=== PATIENT | female | born 1985 | race African-American/Black ===

== ENCOUNTER 2019-01-16 14:57 | Inpatient (IN) | payer OTHER ==
[~2019-01-16] VITALS: Ht 149.9 cm; Wt 85.0 kg
[2019-01-16 15:15] VITALS: BP 123/80; PULSE 116; RESP 16; Ht 149.9 cm; Wt 85.0 kg
[2019-01-16] MEDS ORDERED: IPRA4AER INHALATION (15:25)
[2019-01-16] MEDS ORDERED: FERR134T PO (15:26)
[2019-01-16] MEDS ORDERED: OXYTOCIN 30 UNITS/LR 500 ML IV PRN ×2 (15:30→19:30)
[2019-01-16] MEDS ORDERED: MISOPROSTOL 200 MCG TAB PR PRN ×2 (15:30→19:30)
[2019-01-16] MEDS ORDERED: OXYTOCIN 30 UNITS/LR 500 ML IV SCH ×2 (15:30→19:06)
[2019-01-16] MEDS ORDERED: CEFAZOLIN 2 GM/50 ML (PMX) 50 ML IVPB SCH (15:30)
[2019-01-16] MEDS ORDERED: CARBOPROST 250 MCG INJ IM PRN ×2 (15:30→19:30)
[2019-01-16] MEDS ORDERED: METHYLERGONOVINE 0.2 MG INJ IM PRN ×2 (15:30→19:30)
--- NOTE | 2019-01-16 16:16 | PREAC ---
Date/Time of Note Date/Time of Note DATE: 01/16/19 TIME: 16:14 Anesthesia Eval and Record Evaluation Time Pre-Procedure Interview DATE: 01/16/19 TIME: 16:14 Age 34 Sex female NPO: 8 hrs Preoperative diagnosis repeat c setion Planned procedure c section Past Medical History Past Medical History: Includes Pulm: Asthma : Gestational age: (39.4) Surgery & Anesthesia Issues No known issue Meds Anticoagulation: No Beta Deb within 24 hr: No Reason Beta Deb not given: Pt. not on B-Deb Reported Medications Ferrous Sulfate (Iron) 134 Mg Tablet, 134 MG PO Q8, TAB 01/16/19 Albuterol/Ipratropium* (Combivent Respimat*) 20-100 Mcg/Inh - 4 Gm Aer.w.adap, 1 PUFF INHALATION QID, #1 INHALER 01/16/19 Current Medications Lactated Ringer's 1,000 ml @ 125 mls/hr Q8H IV ; Start 01/16/19 at 15:16 Cefazolin Sodium/ Dextrose 50 ml @ 100 mls/hr ONCE IVPB ; Start 01/16/19 at 15:30 Oxytocin/Lactated Ringer's 500 ml @ 125 mls/hr POST IV ; Start 01/16/19 at 15:30 Oxytocin/Lactated Ringer's 500 ml @ 0 mls/hr ONCE PRN IV .VAGINAL BLEEDING; Start 01/16/19 at 15:30 Methylergonovine Maleate (Methergine) 0.2 mg ONCE PRN IM .VAGINAL BLEEDING; Start 01/16/19 at 15:30 Carboprost Tromethamine (Hemabate) 250 mcg ONCE PRN IM .VAGINAL BLEEDING; Start 01/16/19 at 15:30 Misoprostol (Cytotec) 1,000 mcg ONCE PRN [place] .VAGINAL BLEEDING; Start 01/16/19 at 15:30 Meds reviewed: Yes Allergies Coded Allergies: No Known Allergy (Unverified , 01/16/19) Allergies Reviewed: Yes Labs/Studies Labs Reviewed: Reviewed by anesthesiologist Result Diagram: 01/16/19 1540 Laboratory Tests 01/16/19 15:40 test: Positive Studies: ECG (n/a), CXR (n/a) Pre-procedure Exam Airway: Adequate mouth opening Mallampati: Mallampati I Teeth: Normal Lung: Normal Heart: Normal ASA Physical Status ASA physical status: 2 Emergency: None Planned Anesthetic Neuraxial: Spinal Planned Pain Management Sub-arachniod narcotics Pre-operative Attestations Prior to commencing anesthesia and surgery, the patient was re-evaluated, there was verification of: *The patient's identity *The results of appropriate recent lab work and preoperative vital signs *The above evaluation not changing prior to induction *Anesthetic plan, risk benefits, alternative and complications discussed with patient/family; questions answered; patient/family understands, accepts and wishes to proceed. BRENNON BINGHAM MD January 16, 2019 16:16
[2019-01-16] MEDS ORDERED: ALBUTEROL/IPRATROPIUM (NEB) 3 ML AMP HHN SCH (17:00)
[2019-01-16] MEDS ORDERED: morphine SULFATE/PF (10 MG/10 ML) INJ ONE (17:43)
[2019-01-16] MEDS ORDERED: KETOROLAC 30 MG INJ ONE (17:43)
[2019-01-16] MEDS ORDERED: METOCLOPRAMIDE 10 MG INJ ONE (17:43)
[2019-01-16] MEDS ORDERED: ONDANSETRON 4 MG INJ ONE (17:43)
--- NOTE | 2019-01-16 17:54 | PREOPHP ---
DATE OF ADMISSION: 01/16/2019 HISTORY OF PRESENT ILLNESS: This is a 34-year-old lady, 8, para 3 with 2 spontaneous abortio ns and 2 therapeutic abortions. Her EDC is 01/20/2019 at 39 and 3/7 weeks, admitted to [facility] for repeat plus bilateral tubal ligation. The procedures were explained to her and she understood everything totally. The risks, benefits and alternatives were discussed with her as well. She had 1 previous and desires to have a repeat . PAST PERSONAL HISTORY: No history of diabetes, TB, asthma. ALLERGIES: NO ALLERGIES. SOCIAL HISTORY: The patient does not smoke. She does not drink. MEDICATIONS: She does not take any drugs except her: 1. Iron. 2. Vitamins. GYNECOLOGICAL HISTORY: She had menarche at the age of 8, every 28 days interval, 3 to 4 days duratio n and moderate in amount. FAMILY HISTORY: Grandmother on mother's side had diabetes, hypertension and heart disease. OBSTETRICAL HISTORY: She is 8, para 3. Her first delivery was in 2000, second in 2007, thir d in 2011. The first 2 were normal delivery. The last 1 was by . REVIEW OF SYSTEMS: CARDIOVASCULAR: No chest pains. RESPIRATORY: No cough. GASTROINTESTINAL: No diarrhea. No vomiting. GENITOURINARY: No dysuria. PHYSICAL EXAMINATION: GENERAL: Reveals a conscious, coherent lady and in no acute distress. VITAL SIGNS: Blood pressure 120/80, pulse rate 80 per minute, respirations 16 per minute. BREASTS, HEART AND LUNGS: Within normal limits. ABDOMEN: Soft. No organomegaly. Fundic height 38 cm. heart tones 140 per minute. PELVIC: Revealed the cervix to be 2 to 3 cm dilated, thick, station floating in cephalic presentatio n with the bag of water intact. EXTREMITIES: No pedal edema. ADMITTING DIAGNOSES: 1. A 39 and 3/7 weeks intrauterine . 2. One previous section. 3. Multiparity. 4. The patient desires sterilization. 5. Advanced maternal age. PLAN: The patient was planned to have the above procedure, repeat plus tubal ligation. Th e procedures were explained to the patient as mentioned. She understood everything totally. The ris ks, benefits and alternatives were discussed with her as well. Dictated By: CARA ROSE/JAMIL Conf#: [id number] DID#: [id number]
[2019-01-16] MEDS ORDERED: PHENYLephrine (100 MCG/ML) 10ML SYG ONE (18:13)
[2019-01-16] MEDS ORDERED: LACTATED RINGER'S 1,000 ML IV SCH (19:06)
--- NOTE | 2019-01-16 19:06 | OPPN ---
Date/Time of Note Date/Time of Note DATE: 01/16/19 TIME: 19:03 Operative Report Planned Procedure Procedure date January 16, 2019 Procedure(s) REPEAT CSECTION BTL SUBMUCOS MYOMECTOMY Performed by see signature line Corner Trimmer Operator: JARON BECKHAM MD 2nd Corner Trimmer Operator none Pre-procedure diagnosis 39 WEEKS 3/7 IUP PREVIOUS CSECTION MULTIPARITY [id number] Anesthesia Type: [id number] spinal Post-Procedure Post-procedure diagnosis 39 WEEKS 3/7 IUP PREVIOUS CSECTION MULTIPARITY FIBROID Findings Live Baby BOY, Apgars 9and 9, [id number] Estimated Blood Loss: 500 - 600 mls Specimen(s) none Grafts/Implant(s) PLACENTA BOTH TUBES FIBROID Complication(s) none CARA LANIER MD January 16, 2019 19:06
[2019-01-16] MEDS: LACTATED RINGER'S 1,000 ML IV SCH ×2 (19:23→23:16)
[2019-01-16] MEDS ORDERED: ONDANSETRON 4 MG INJ IV PRN ×2 (19:30)
[2019-01-16] MEDS ORDERED: KETOROLAC 30 MG INJ IV PRN ×2 (19:30)
[2019-01-16] MEDS ORDERED: NALOXONE (0.4 MG/ML) INJ IV PRN (19:30)
[2019-01-16] MEDS ORDERED: METHYLERGONOVINE 0.2 MG TAB PO PRN (19:30)
[2019-01-16] MEDS ORDERED: HYDROCODONE/APAP (5/325) TAB PO PRN (19:30)
[2019-01-16] MEDS ORDERED: LANOLIN HPA 1 PKT TOP PRN (19:30)
[2019-01-16] MEDS ORDERED: DIPHENHYDRAMINE 50 MG INJ IV PRN ×2 (19:30)
[2019-01-16] MEDS ORDERED: morphine 2 MG INJ IV PRN ×6 (19:30)
[2019-01-16 21:50] VITALS: BP 118/64; PULSE 93; RESP 18
[2019-01-16] MEDS: SENNA/DOCUSATE NA (8.6MG/50MG) TAB PO SCH (22:02)
[2019-01-17 02:00] VITALS: BP 108/55; RESP 18
[2019-01-17] MEDS: LACTATED RINGER'S 1,000 ML IV SCH ×2 (04:32→12:18)
[2019-01-17 07:30] VITALS: BP 94/54; PULSE 102; RESP 18
--- NOTE | 2019-01-17 07:57 | PAC ---
Date/Time of Note Date/Time of Note DATE: 01/17/19 TIME: 07:57 Post-Anesthesia Notes Post-Anesthesia Note Last documented vital signs Vital Signs Date Temp Pulse Resp B/P (MAP) Pulse Ox O2 O2 Flow FiO2 Time Delivery Rate 01/17/19 98.2 91 18 108/55 98 Room Air 02:00 (72) 01/16/19 93 21:50 Activity: WNL Respiratory function: WNL Cardiovascular function: WNL Mental status: Baseline Pain reasonably controlled: Yes Hydration appropriate: Yes Nausea/Vomiting absent: No BRENNON BINGHAM MD January 17, 2019 07:57
--- NOTE | 2019-01-17 07:58 | OPPN ---
Date/Time of Note Date/Time of Note DATE: 01/17/19 TIME: 07:58 Anesthesia Follow up Anesthesia Follow up Last documented vital signs Vital Signs Date Temp Pulse Resp B/P (MAP) Pulse Ox O2 O2 Flow FiO2 Time Delivery Rate 01/17/19 98.2 18 108/55 98 Room Air 02:00 (72) 01/16/19 93 21:50 Respiratory function: WNL Cardiovascular function: WNL Comments A 34 year female s/p spinal with duramorph form post op pain POD#1 is fine. No pain, headache, N/V, itching. no neural deficit. care per surgery BRENNON BINGHAM MD January 17, 2019 07:58
[2019-01-17] MEDS: SENNA/DOCUSATE NA (8.6MG/50MG) TAB PO SCH ×2 (08:33→21:41)
[2019-01-17] MEDS: FERROUS SULFATE (EC) 325 MG TAB PO SCH ×2 (12:18→21:41)
--- NOTE | 2019-01-17 15:09 | OPR ---
DATE OF OPERATION: 01/16/2019 PREOPERATIVE DIAGNOSES: 39 and 3/7 weeks intrauterine with previous x1, multipar ity, discharged to sterilization. POSTOPERATIVE DIAGNOSES: 39 and 3/7 weeks intrauterine with previous x1, multipa rity, discharged to sterilization, submucous fibroid on the lower uterine segment. SURGEON: Cara Mclaughlin M.D. [employer] SE[employer] PLANT ENGINEER: Dr. Handley ANESTHESIA: Under spinal anesthesia. OPERATION PERFORMED: Repeat low transverse section plus bilateral tubal ligation and transe ction and myomectomy. OPERATIVE TECHNIQUE: Under spinal anesthesia, the patient was prepped and draped in the usual fashio n for abdominal surgery. After checking for the effect of the anesthesia, Pfannenstiel incision, 12 cm skin incision was performed. The previous scar was excised. The incision was carried from the sk in up to the fascia. Upon opening the skin up to the fascia, small blood vessels were noted to be oo zing and these were all cauterized. Fascia was opened transversely followed by splitting the muscles vertically and the peritoneum vertically. Upon opening the abdominal cavity, the bladder blade was put in place. A small rahat was performed from the serosa up to the endometrium on the lower uterine segment and the rahat was carried sideways with the aid of my 2 fingers. My left hand was inserted on the lower segment of the uterus and the bag of water was ruptured. Clear fluid was noted. Baby's h ead was delivered with good fundal pressure. The baby's airways were quickly suctioned with amniotic fluid. The anterior shoulder, posterior shoulder, and rest of the body of the baby was delivered. Baby's airways were quickly suctioned with amniotic fluid, cord was clamped after 30 seconds and baby was handed to the NICU team. The placenta was delivered manually and complete. The uterus was exte riorized. The uterus was cleansed with wet lap sponge to make sure that no membranes were left behind. The lower uterine segment on the right angle of the incision, there is a huge fibroid 7 x 7 cm and pedunculated and the lower uterine segment cannot be closed without removing this fibroid, so that 2 Jaime suture were placed at the base of the fibroid and the fibroid was excised. Jaime sut ure was put in and the 2 Jaime suture was put in but followed by free tie on both. Bleeders were ch ecked, and there was no bleeding noted. Then, after correct sponge count, the uterus was closed in t he usual fashion using #1 chromic for the first layer, continuous locking suture was used followed by #1 chromic for the second layer, imbricating sutures were used. Bleeders were checked, and there wa s no bleeding noted. After checking for any bleeders in which there were none, both tubes and ovarie s were inspected. They were healthy looking. The back of the uterus was checked for any hematoma an d there was none noted. Then the right tube was grasped on the center where the avascular area was. A 1 cm tube was stick tied at the proximal and distal portions with 2-0 silk. A stick tie with 2-0 chromic above the first silk tie and another free tie with 2-0 chromic above the second tie. The rig ht tube was cut and the cut ends were cauterized. Same thing was done on the left side. Both fimbri a were identified, 1 cm tube was transected on both sides. Then, after checking for any bleeders in which there were none, then the broad ligament as mentioned were checked for any hematoma and there w as none noted. The uterus was put back to the pelvic cavity. Once again, uterine incision was check ed for any bleeders and there was no bleeding noted. After correct sponge count, needle count and in strument count as confirmed by the supervisor sound technician and electorate officer, the abdomen was closed in the usual fas hion using 0 Vicryl for the peritoneum, 0 Vicryl for the muscles, for the fascia 0 Vicryl continuous stitch was used followed by few [id number] suture for the subcutaneous tissue, it was closed wit h 3-0 Vicryl and the skin was closed with 3-0 Vicryl, subcuticular suture was used. The patient toldiego rated the procedure well. Estimated blood loss was about 600 mL. Vital signs were stable during and after the procedure. She delivered a healthy baby boy, Apgars 9 and 9 on 01/16/2019 at 8:19 p.m. wi th weight 6 pounds 7 ounces, 2930 grams. Dictated By: CARA ROSE/JAMIL Conf#: [id number] DID#: [id number] CC: CARA MCLAUGHLIN MD;*[facility]*
[2019-01-17 16:00] VITALS: BP 117/73; PULSE 102; RESP 18
[2019-01-17] MEDS: HYDROCODONE/APAP (5/325) TAB PO PRN ×2 (17:46→23:44)
[2019-01-17] MEDS: SOD CHLORIDE 0.9% 1,000 ML IV SCH (18:50)
[2019-01-17 20:05] VITALS: BP 108/71; PULSE 100; RESP 18
[2019-01-17] MEDS: IBUPROFEN 800 MG TAB PO PRN (22:28)
[2019-01-17 22:35] VITALS: BP 120/72; PULSE 90; RESP 18
[2019-01-17 23:35] VITALS: BP 120/72; PULSE 100; RESP 18
[2019-01-18 02:00] VITALS: BP 109/58; PULSE 99; RESP 18
[2019-01-18] MEDS: SOD CHLORIDE 0.9% 1,000 ML IV SCH ×3 (03:00→19:00)
[2019-01-18 04:00] VITALS: BP 110/72; PULSE 92; RESP 18
[2019-01-18] MEDS: HYDROCODONE/APAP (5/325) TAB PO PRN ×2 (04:43→17:27)
[2019-01-18] MEDS: IBUPROFEN 800 MG TAB PO PRN ×2 (07:26→15:44)
[2019-01-18 07:30] VITALS: BP 114/57; PULSE 88; RESP 18
[2019-01-18] MEDS: SENNA/DOCUSATE NA (8.6MG/50MG) TAB PO SCH ×2 (08:52→21:00)
[2019-01-18] MEDS: FERROUS SULFATE (EC) 325 MG TAB PO SCH ×3 (08:52→21:00)
[2019-01-18 16:17] VITALS: BP 121/64; PULSE 95; RESP 18
--- NOTE | 2019-01-18 16:26 | PN ---
Date/Time of Note Date/Time of Note DATE: 01/17/19 TIME: 16:24 Assessment/Plan VTE Prophylaxis Risk score (from Ns)>0 risk: 3 SCD applied (from Ns): No SCD contraindicated: low risk/ambulating Pharmacological prophylaxis: NA/contraindicated Pharm contraindication: low risk/ambulating Lines/Catheters IV C[facility]from [facility] Saline Lock Assessment/Plan Assessment/Plan POSTCSECTION DAY 1 CHRONIC IRON DEFICIENCY ANEMIA TRANFUSE 2 UNITS PACK CELL ORDERED ADVANCE DIET TOLERATED CBC ON 3RD POSTOP DAY Result Diagram: 01/17/19 0659 01/17/19 0659 Subjective 24 Hr Interval Summary Free Text/Dictation POST CSECTION DAY 1 COMPLAIN OF INCISIONAL PAINS GOOD URINE OUTPUT PASSING GAS PER RECTUM NO BOWEL MOVEMENT YET Exam/Review of Systems Exam Vitals Vital Signs Date Temp Pulse Resp B/P (MAP) Pulse Ox O2 O2 Flow FiO2 Time Delivery Rate 01/18/19 98.4 95 18 121/64 Room Air 16:17 (83) 01/17/19 98 02:00 Intake and Output 01/17/19 01/17/19 01/18/19 1515:00 23:00 07:00 IntakeIntake Total 1700 ml 650 ml OutputOutput Total 800 ml 1500 ml BalanceBalance 900 ml -850 ml Exam VITAL SIGNS STABLE: YES AFEBRILE: YES BREAST NOT ENGORGED, NON-TENDER, NO APPRECIABLE MASS: YES LUNGS CLEAR, NO RALES, WHEEZES, RHONCHI: YES SINUS RHYTHM WITHOUT MURMUR: YES ABDOMEN: NON-TENDER FUNDUS: BELOW UMBILICUS BOWEL SOUNDS: PRESENT UTERUS: FIRM INCISION (CLEAN, DRY, AND INTACT): YES LOCHIA: LIGHT DEEP TENDON REFLEXES: 0 EXTREMITIES: NO CALF TENDERNESS EDEMA SCALE: NONE Medications Medication Current Medications Methylergonovine Maleate (Methergine) 0.2 mg ONCE PRN IM .VAGINAL BLEEDING; Start 01/16/19 at 15:30 Misoprostol (Cytotec) 1,000 mcg ONCE PRN [place] .VAGINAL BLEEDING; Start 01/16/19 at 15:30 Albuterol/ Ipratropium (Duoneb) 3 ml PRN HHN ; Start 01/16/19 at 17:00 Methylergonovine Maleate (Methergine) 0.2 mg Q6H PRN PO .VAGINAL BLEEDING; Start 01/16/19 at 19:30 Acetaminophen/ Hydrocodone Bitart ([place] (5/325)) 1 tab Q4H PRN PO MODERATE PAIN LEVEL 4-6; Start 01/16/19 at 19:30 Acetaminophen/ Hydrocodone Bitart ([place] (5/325)) 2 tab Q4H PRN PO SEVERE PAIN LEVEL 7-10 Last administered on 01/18/19at 04:43; Admin Dose 2 TAB; Start 01/16/19 at 19:30 Ibuprofen (Motrin) 800 mg Q8 PRN PO MILD PAIN LEVEL 1-3 Last administered on 01/18/19at 15:44; Admin Dose 800 MG; Start 01/17/19 at 19:30 Simethicone (Mylicon) 160 mg Q8H PRN PO .GAS Last administered on 01/17/19at 23:45; Admin Dose 160 MG; Start 01/16/19 at 19:30 Senna/Docusate Sodium (Senokot-S) 1 tab BID PO Last administered on 01/18/19at 08:52; Admin Dose 1 TAB; Start 01/16/19 at 21:00 Lanolin (Lanolin Hpa) 1 applic BEDSIDE MEDICATION PRN TOP .NIPPLES; Start 01/16/19 at 19:30 Diphtheria/ Tetanus/Acell Pertussis (Adacel) 0.5 ml ONCE ONCE IM* ; Start 01/19/19 at 09:00; Stop 01/19/19 at 09:01 Measles/Mumps/ Rubella Vaccine Live (Mmr Ii Vaccine) 0.5 ml ONCE ONCE SC* ; Start 01/19/19 at 09:00; Stop 01/19/19 at 09:01 Oxytocin/Lactated Ringer's 500 ml @ 0 mls/hr ONCE PRN IV .VAGINAL BLEEDING; Start 01/16/19 at 19:30 Methylergonovine Maleate (Methergine) 0.2 mg ONCE PRN IM .VAGINAL BLEEDING; Start 01/16/19 at 19:30 Misoprostol (Cytotec) 1,000 mcg ONCE PRN [place] .VAGINAL BLEEDING; Start 01/16/19 at 19:30 Ferrous Sulfate (Ferrous Sulfate (Ec)) 325 mg TID PO Last administered on 01/18/19at 13:07; Admin Dose 325 MG; Start 01/17/19 at 13:00 Sodium Chloride 1,000 ml @ 125 mls/hr Q8H IV Last administered on 01/17/19at 18:50; Admin Dose 125 MLS/HR; Start 01/17/19 at 19:00 CARA LANIER MD January 18, 2019 16:26
--- NOTE | 2019-01-18 16:27 | PN ---
Date/Time of Note Date/Time of Note DATE: 01/18/19 TIME: 16:26 Assessment/Plan VTE Prophylaxis Risk score (from Nsg)>0 risk: 3 SCD applied (from Nsg): No SCD contraindicated: low risk/ambulating Pharmacological prophylaxis: NA/contraindicated Pharm contraindication: low risk/ambulating Lines/Catheters IV Catheter Type (from Nrsg): Saline Lock Assessment/Plan Assessment/Plan POST CSECTION DAY 2 CHRONIC IRON DEFICIENCY ANEMIA HOME TOMORROW CBC TOMORROW COUNSELED INSTRUCTED PRESCRIPTION GIVEN FOR PAIN RETURN TO CLINIC IN 2 WEEKS CALL OFFICE IF THERE IS ANY PROBLEM OR CONCERN CONTINUE WITH VITAMINS OD AND FERROUS SULFATE 325MG PO TID DIET ADVISED Result Diagram: 01/17/19 0659 01/17/19 0659 Subjective 24 Hr Interval Summary Free Text/Dictation POST CSECTION DAY 2 GOOD BOWEL MOVEMENT GOOD URINE OUTPUT FEELS LESS INCISIONAL PAINS Exam/Review of Systems Exam Vitals Vital Signs Date Temp Pulse Resp B/P (MAP) Pulse Ox O2 O2 Flow FiO2 Time Delivery Rate 01/18/19 98.4 95 18 121/64 Room Air 16:17 (83) 01/17/19 98 02:00 Intake and Output 01/17/19 01/17/19 01/18/19 1515:00 23:00 07:00 IntakeIntake Total 1700 ml 650 ml OutputOutput Total 800 ml 1500 ml BalanceBalance 900 ml -850 ml Exam VITAL SIGNS STABLE: YES AFEBRILE: YES BREAST NOT ENGORGED, NON-TENDER, NO APPRECIABLE MASS: YES LUNGS CLEAR, NO RALES, WHEEZES, RHONCHI: YES SINUS RHYTHM WITHOUT MURMUR: YES ABDOMEN: NON-TENDER FUNDUS: BELOW UMBILICUS BOWEL SOUNDS: PRESENT UTERUS: FIRM INCISION (CLEAN, DRY, AND INTACT): YES LOCHIA: LIGHT DEEP TENDON REFLEXES: 0 EXTREMITIES: NO CALF TENDERNESS EDEMA SCALE: NONE Medications Medication Current Medications Methylergonovine Maleate (Methergine) 0.2 mg ONCE PRN IM .VAGINAL BLEEDING; Start 01/16/19 at 15:30 Misoprostol (Cytotec) 1,000 mcg ONCE PRN [place] .VAGINAL BLEEDING; Start 01/16/19 at 15:30 Albuterol/ Ipratropium (Duoneb) 3 ml PRN HHN ; Start 01/16/19 at 17:00 Methylergonovine Maleate (Methergine) 0.2 mg Q6H PRN PO .VAGINAL BLEEDING; Start 01/16/19 at 19:30 Acetaminophen/ Hydrocodone Bitart ([place] (5/325)) 1 tab Q4H PRN PO MODERATE PAIN LEVEL 4-6; Start 01/16/19 at 19:30 Acetaminophen/ Hydrocodone Bitart ([place] (5/325)) 2 tab Q4H PRN PO SEVERE PAIN LEVEL 7-10 Last administered on 01/18/19at 04:43; Admin Dose 2 TAB; Start 01/16/19 at 19:30 Ibuprofen (Motrin) 800 mg Q8 PRN PO MILD PAIN LEVEL 1-3 Last administered on 01/18/19at 15:44; Admin Dose 800 MG; Start 01/17/19 at 19:30 Simethicone (Mylicon) 160 mg Q8H PRN PO .GAS Last administered on 01/17/19at 23:45; Admin Dose 160 MG; Start 01/16/19 at 19:30 Senna/Docusate Sodium (Senokot-S) 1 tab BID PO Last administered on 01/18/19at 08:52; Admin Dose 1 TAB; Start 01/16/19 at 21:00 Lanolin (Lanolin Hpa) 1 applic BEDSIDE MEDICATION PRN TOP .NIPPLES; Start 01/16/19 at 19:30 Diphtheria/ Tetanus/Acell Pertussis (Adacel) 0.5 ml ONCE ONCE IM* ; Start 01/19/19 at 09:00; Stop 01/19/19 at 09:01 Measles/Mumps/ Rubella Vaccine Live (Mmr Ii Vaccine) 0.5 ml ONCE ONCE SC* ; Start 01/19/19 at 09:00; Stop 01/19/19 at 09:01 Oxytocin/Lactated Ringer's 500 ml @ 0 mls/hr ONCE PRN IV .VAGINAL BLEEDING; Start 01/16/19 at 19:30 Methylergonovine Maleate (Methergine) 0.2 mg ONCE PRN IM .VAGINAL BLEEDING; Start 01/16/19 at 19:30 Misoprostol (Cytotec) 1,000 mcg ONCE PRN [place] .VAGINAL BLEEDING; Start 01/16/19 at 19:30 Ferrous Sulfate (Ferrous Sulfate (Ec)) 325 mg TID PO Last administered on 01/18/19at 13:07; Admin Dose 325 MG; Start 01/17/19 at 13:00 Sodium Chloride 1,000 ml @ 125 mls/hr Q8H IV Last administered on 01/17/19at 18:50; Admin Dose 125 MLS/HR; Start 01/17/19 at 19:00 CARA LANIER MD January 18, 2019 16:27
[2019-01-18 20:10] VITALS: BP 105/61; PULSE 82; RESP 18
[2019-01-19 03:00] VITALS: BP 119/87; PULSE 98; RESP 20
[2019-01-19] MEDS: SOD CHLORIDE 0.9% 1,000 ML IV SCH (03:00)
[2019-01-19] MEDS: IBUPROFEN 800 MG TAB PO PRN ×2 (06:22→16:22)
[2019-01-19 08:45] VITALS: BP 111/69; PULSE 97; RESP 18
[2019-01-19] MEDS: HYDROCODONE/APAP (5/325) TAB PO PRN (08:58)
[2019-01-19] MEDS: FERROUS SULFATE (EC) 325 MG TAB PO SCH ×2 (08:59→15:46)
[2019-01-19] MEDS: SENNA/DOCUSATE NA (8.6MG/50MG) TAB PO SCH (08:59)
[2019-01-19] MEDS ORDERED: MEASLES,MUMPS,RUBELLA VACCINE INJ SC* ONE (09:00)
[2019-01-19] MEDS ORDERED: DIPHTH/TET/ACEL PERTUSS (ADULT) 0.5 ML VIAL IM* ONE (09:00)
[2019-01-19 16:05] VITALS: BP 116/67; PULSE 78; RESP 20
--- NOTE | 2019-01-20 19:50 | DELSUM ---
Delivery Summary A-C Datetime Report Generated by CPN: 01/20/2019 19:50 DELIVERY PERSONNEL Personnel Worker: Lai, Wenbing MATERNAL INFORMATION Delivery Anesthesia: Spinal Medications in Delivery: see anesthesia records Delivery QBL (ml): 600 Placenta Cultured: No Maternal Complications: None RN Comments: asthma LABOR SUMMARY EDC: 01/20/2019 00:00 No. Babies in Womb: 1 Attempted: No Labor Anesthesia: Intrathecal LABOR INFORMATION Reason for Induction: Not Applicable Oxytocin: N/A Group B Beta Strep: Positive Antibiotics # of Doses: 1 Antibiotics Time of Last Dose: 01/16/2019 17:58 Steroids Given: None Reason Steroids Not Administered: Not Applicable MEMBRANES Membranes Rupture Method: Artificial Rupture of Membranes: 01/16/2019 18:18 Length of Rupture (hr): 0.02 Amniotic Fluid Color: Clear Amniotic Fluid Amount: None Amniotic Fluid Odor: Normal STAGES OF LABOR Stage 3 hr: 0 Stage 3 min: 1 CSECTION DELIVERY Primary Indication: Repeat Elective CSection Urgency: Elective CSection Incidence: Repeat Labor: No Labor Elective: Elective CSection Incision: Classical Sterilization Procedure: [place] BABY A INFORMATION Infant Delivery Date/Time: 01/16/2019 18:19 Method of Delivery: Born in Route : No : N/A Forceps: N/A Vacuum Extraction: N/A Shoulder Dystocia : No SHOULDER DYSTOCIA BABY A Infant Delivery Date/Time: 01/16/2019 18:19 PRESENTATION/POSITION BABY A Presentation: Cephalic Cephalic Presentation: Vertex Vertex Position: Left Occipital Posterior Breech Presentation: N/A PLACENTA INFORMATION BABY A Placenta Delivery Time : 01/16/2019 18:20 Placenta Method of Delivery: Manual Removal Placenta Status: Delivered SCORES BABY A Heart Rate 1 min: >100 bpm Resp Effort 1 min: Good Cry Reflex Irritability 1 min: Cough/Sneeze/Pulls Away Muscle Tone 1 min: Active Motion Color 1 min: Body [place], Extremit Blue Resuscitation Effort 1 min: Tactile Stimulation SCORE 1 MIN: 9 Heart Rate 5 min: >100 bpm Resp Effort 5 min: Good Cry Reflex Irritability 5 min: Cough/Sneeze/Pulls Away Muscle Tone 5 min: Active Motion Color 5 min: Body [place], Extremit Blue Resuscitation Effort 5 min: Tactile Stimulation SCORE 5 MIN: 9 INFORMATION BABY A Gestational Age at Delivery: 39.3 Gestational Status: Full Term- 39- 40.6 Weeks Outcome : Liveborn Condition : Stable Infant Sex: Male IDENTIFICATION/MEDS BABY A ID Band Number: [id number] ID Band Location: Right Leg; Left Arm Sensor Applied: Yes Sensor Number: [id number] Sensor Location : Cord Clamp WEIGHT/LENGTH BABY A Birthweight (gm): 2930 Infant Weight (lb): 6 Infant Weight (oz): 7 Infant Length (in): 20.00 Infant Length (cm): 50.80 CORD INFORMATION BABY A No. Cord Vessels: 3 Nuchal Cord : N/A True Knot: 1 Cord Blood Taken: Yes Infant Suction: Mouth; Nose ASSESSMENT BABY A Complications: None Physical Findings at Delivery: Within Normal Limits Infant Respirations: Appears Normal Supervisor [employer]/ALS Called : No Care By: rt/ oral Transferred To: Remains with Mother
== END 2019-01-19 19:30 | disposition home or self-care (01) | DRG 785 ==
LOC: L-D 14:57 → PP1 21:56
PROVIDERS: ADMIT Obstetrics & Gynecology; ATTEND Obstetrics & Gynecology
PROC: 0UB70ZZ Excision of Bilateral Fallopian Tubes, Open Approach (ICD-10-PCS; 2019-01-16)
PROC: 0UB90ZZ Excision of Uterus, Open Approach (ICD-10-PCS; 2019-01-16)
PROC: 10D00Z1 Extraction of Products of Conception, Low, Open Approach (ICD-10-PCS; principal; 2019-01-16 17:00)
PROC: 30233N1 Transfusion of Nonautologous Red Blood Cells into Peripheral Vein, Percutaneous Approach (ICD-10-PCS; 2019-01-17)
DX: O34.211 Maternal care for low transverse scar from previous cesarean delivery (principal); O34.13 Maternal care for benign tumor of corpus uteri, third trimester; D25.0 Submucous leiomyoma of uterus; G89.18 Other acute postprocedural pain; O99.03 Anemia complicating the puerperium; D50.9 Iron deficiency anemia, unspecified; Z3A.39 39 weeks gestation of pregnancy; Z37.0 Single live birth; Z30.2 Encounter for sterilization; Z23 Encounter for immunization
CPT/HCPCS: 36430; 80048; 80307; 85025; 85610; 85730; 86592; 86850; 86900; 86901; 86920; 88305; 90715; 99464; J0690; J1885; J2274; J2370; J2405; J2590; J2765; J7030; J7120; P9016